=== PATIENT | female | born 1965 | race Caucasian/White ===

== ENCOUNTER 2024-08-06 22:53 | Emergency (ER) | payer OTHER, BC, SELFPAY ==
[2024-08-06 22:58] VITALS: BP 146/98; PULSE 79; RESP 18; TEMP 36.4; O2SAT 97; BMI 31.8
--- NOTE | 2024-08-07 02:13 | ED_ITS ---
HPI - General Adult General Chief complaint: General Medical Stated complaint: Exposure to rabies Time Seen by Provider: 08/07/24 01:58 Source: patient, RN notes reviewed and old records reviewed Mode of arrival: ambulatory Limitations: no limitations History of Present Illness ED Provider: Roderick CABRERA narrative: 59-year-old female presents for evaluation of a rabies exposure. She states that 1 week ago she was handling a cat that was admitted to her that clinic. 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 Late last night the cat was confirmed to be positive for rabies The patient has no complaints or concerns, no signs or symptoms She was told by her job to come to the ER for rabies vaccination The patient was last vaccinated in the The patient admits to handling the CT she was wearing gloves her most of the time but may have handled the CT without gloves. She does not believe she was bit She reports that she may have had some superficial scratches but does not have any scratches at the moment Related Data Allergies Allergy/AdvReac Type Severity Reaction Status Date / Time No Known Allergies Allergy Verified 08/06/24 22:59 Review of Systems Constitutional: Constitutional: Denies body ache(s), Denies chills, Denies fever(s) and Denies headache(s) Eyes: Eyes: Denies blurry vision ENT: Denies headache(s) Cardiovascular: Cardiovascular: Denies chest pain and Denies dyspnea Respiratory: Respiratory: Denies dyspnea Gastrointestinal: Gastrointestinal: Denies abdominal pain, Denies nausea and Denies vomiting Musculoskeletal: Musculoskeletal: Denies back pain Neurologic: Denies headache(s) PMFSH Social History Social History Do you have a plan to hurt others: No Plan Physical Exam ED Vital Signs: Vital Signs - 24 hr 08/06/24 22:58 Temperature 97.5 F Pulse Rate 79 Respiratory Rate 18 Blood Pressure 146/98 H Pulse Oximetry 97 Oxygen Delivery Method Room Air BMI result Body Mass Index 31.8 Const General: healthy appearing, comfortable, no acute distress, alert and awake Nutritional Appearance: well nourished Orientation/consciousness: patient oriented x3 HENMT Head: Yes normocephalic and Yes atraumatic Eyes Eyelids: Yes eyelids normal Conjunctivae: conjunctivae normal Sclerae: sclerae normal Corneas: corneas normal Pupils: Equal, round and reactive pupils present EOM: EOMs intact bilaterally Neck Neck: Yes full ROM Resp Effort & Inspection: normal respiratory effort, able to speak in complete sentences and not labored Cardio Rate: regular rate Rhythm: regular rhythm Skin General skin exam: no rashes or lesions noted and elasticity normal Neuro General: patient oriented x3 Cranial nerves: Yes CN's II-XII intact bilaterally, Yes Equal, round and reactive pupils present and Yes Bilaterally intact EOM present Cognition (Neuro): normal cognition Extrem Other: Moving all extremities well without any obvious deformities Medical Decision Making Medical Decision Making MDM Narrative: 59-year-old female presents for evaluation of a confirm rabies exposure. She had received the vaccine and immunoglobulin. There were no bites or scratches, so the entire immune globulin will be administered intramuscular. Differential Diagnosis Differential Diagnoses: The differential diagnosis associated with the presentation includes Rabies exposure Rabies Cat scratch Well visit Discharge Plan Discharge Clinical Impression: Rabies exposure Patient Disposition: Home, Self-Care Instructions: Rabies Vaccine (By injection), Rabies Immune Globulin (By injection) Additional Instructions: Rabies follow up with the [facility]: Upon discharge from the ED today, you will be contacted by the Infusion Center to schedule your follow up Rabies vaccines. You will need a total of 3 more injections. If for some reason you do not receive a call, please call the Infusion Center directly at [phone]. Follow up with your primary care provider after completion of the vaccine to have a titer drawn to ensure the vaccines effectiveness.
[2024-08-07 02:18] VITALS: BP 139/77; PULSE 97; RESP 16; TEMP 36.4; O2SAT 97
--- OUTSIDE RECORDS SUMMARY | 2024-08-07 02:19 | XMS_ITS | Continuity of Care Document ---
Author Organization [facility] [place] Address [address] [place] [id number]- Care Team Providers Care Manufacturing Engineer Name Role Phone Junaid ROSARIO, Seferino Alcocer Primary Care Physician [place] [facility] [place] - 01/07/[address] [address]- [facility] Attending Physician: iTmi Parr MD Allergies, Adverse Reactions, Alerts Substance Reaction Severity Status NKA Active Medications docusate sodium 100 mg oral capsule 1 capsule = 100 mg, By Mouth, 2 times a day, # 20 capsule, 0 Refills, Maintenance, 02/09/15 9:22:23, Capsule Start Date: 02/09/15 Stop Date: 02/19/15 Status: Ordered Social History Social History Type Response Smoking Status Unknown if ever smok ed entered on: 02/07/15 Sex
--- OUTSIDE RECORDS SUMMARY | 2024-08-07 02:19 | XMS_ITS | Continuity of Care Document ---
Author Organization [facility] Address [address] [place] [id number]- Care Team Providers Care Design Inserter Name Role Phone Junaid ROSARIO, Seferino Alcocer Primary Care Physician [place] [facility] [facility] [place](s[place] 12/23/19 - 12/23/[address] [address] [facility] Attending Physician: Edward ROSARIO, Marylin Arnold Allergies, Adverse Reactions, Alerts Substance Reaction Severity [...]
--- OUTSIDE RECORDS SUMMARY | 2024-08-07 02:19 | XMS_ITS | Continuity of Care Document ---
Author Organization [facility] Address [address] [place] [id number]- Care Team Providers Care Project Development Director Name Role Phone Junaid ROSARIO, Seferino S Primary Care Physician Encounter [facility] [place] Date(s): 12/23/19 - 12/23/[address] [address]- [facility] Attending Physician: Timi Parr MD Allergies, Adverse Reactions, Alerts Substance Reaction Severity Status NKA Active Medications docusate sodium 100 mg oral capsule 1 capsule = 100 mg, By Mouth, 2 times a day, # 20 capsule, 0 Refills, Maintenance, 02/09/15 9:22:23, Capsule Start Date: 02/09/15 Stop Date: 02/19/15 Status: Ordered Results Orders for Microbiology Reports Name Date Urine Culture (URINE CULTURE) 12/23/19 Microbiology Reports TEST:Urine Culture STATUS:Unauthenticated BODY SITE: SOURCE:URINE COLLECTED DATE/TIME:12/23/19 11:30 AM Urine Culture SPECIMEN DESCRIPTION : URINE SPECIAL REQUESTS : NONE Reflexed from [id number] REPORT STATUS : PRELIMINARY REPORT Social History Social History Type Response Smoking Status Unknown if ever smok ed entered on: 02/07/15 Sex
[2024-08-07] MEDS: Rabies Vaccine, Human Diploid (Imovax) 1 ML VIAL IM (02:25)
[2024-08-07] MEDS: Rabies Immune Globulin/PF 900 UNIT/3 ML VIAL 1576 UNIT IM (02:27)
[2024-08-07 02:40] VITALS: BP 139/77; PULSE 97; RESP 16; TEMP 36.4; O2SAT 97
== END 2024-08-07 02:40 | disposition home or self-care (01) ==
LOC: HO.ED 08-07 02:18
PROVIDERS: Emergency Provider Emergency Medicine; PCP Internal Medicine
DX: Z20.3 Contact with and (suspected) exposure to rabies (principal); Z23 Encounter for immunization
CPT/HCPCS: 90375; 90471; 90675; 96372; 99283; 99284

== ENCOUNTER 2024-08-21 08:15 | Outpatient (RCR) | payer OTHER, BC, SELFPAY ==
[2024-08-10 09:58] VITALS: BP 150/97; PULSE 82; RESP 18; TEMP 36.6; O2SAT 96
[2024-08-10] MEDS: Rabies Vaccine, Human Diploid (Imovax) 1 ML VIAL IM (10:04)
[2024-08-14 08:19] VITALS: BP 159/92; PULSE 71; RESP 14; TEMP 36.7
[2024-08-14] MEDS: Rabies Vaccine (PCEC)/PF 1 ML VIAL IM (08:21)
[2024-08-21 08:31] VITALS: BP 145/94; PULSE 76; RESP 12; TEMP 36.6; O2SAT 98
[2024-08-21] MEDS: Rabies Vaccine (PCEC)/PF 1 ML VIAL IM (08:36)
== END 2024-08-21 08:41 | disposition home or self-care (01) ==
LOC: HO.INF 08:15
PROVIDERS: Visit Provider Physician Assistant
DX: Z20.3 Contact with and (suspected) exposure to rabies (principal)
CPT/HCPCS: 90471; 90675